=== PATIENT | female | born 1950 | race Caucasian/White ===

== ENCOUNTER 2024-09-25 21:59 | Emergency (ER) | payer MEDICARE ==
[~2024-09-25] VITALS: Ht 154.9 cm; Wt 79.4 kg
[2024-09-25] MEDS ORDERED: Morphine 2mg Syringe 2 MG/ML SYR IV ONE (23:30)
[2024-09-26] MEDS: SODIUM CHLORIDE 0.9% 500ML 500 ML IV ONE (00:30)
[2024-09-26] MEDS: FAMOTIDINE 20 MG/2 ML VIAL IV STA (00:30)
[2024-09-26] MEDS: ONDANSETRON HCL INJ 2MG/ML 2ML 2 MG/ML VIAL IV STA (00:30)
[2024-09-26] MEDS: Morphine 4mg INJECTION 4 MG/ML INJ IV ONE (00:32)
[2024-09-26] MEDS ORDERED: IOPAMIDOL 370 MG/ML 100 ML INFUS..BTL INJ ONE (00:49)
[2024-09-26] MEDS ORDERED: ONDANSETRON ODT4 MG PO (02:21)
[2024-09-26] MEDS ORDERED: PEPCID20 MG PO (02:22)
[2024-09-26 02:30] VITALS: PULSE 61; RESP 16; TEMP 98.1
[2024-09-26 02:33] VITALS: BP 156/73; PULSE 61; RESP 15; TEMP 98.1; O2SAT 96
== END 2024-09-26 02:47 | disposition home or self-care (01) ==
LOC: FSED 22:04
DX: R11.2 Nausea with vomiting, unspecified (principal); K57.90 Diverticulosis of intestine, part unspecified, without perforation or abscess without bleeding; R19.7 Diarrhea, unspecified; K44.9 Diaphragmatic hernia without obstruction or gangrene; K76.0 Fatty (change of) liver, not elsewhere classified; M19.09 Primary osteoarthritis, other specified site; M17.12 Unilateral primary osteoarthritis, left knee; R91.1 Solitary pulmonary nodule; I25.10 Atherosclerotic heart disease of native coronary artery without angina pectoris; I34.81 Nonrheumatic mitral (valve) annulus calcification; R94.31 Abnormal electrocardiogram [ECG] [EKG]; Z85.72 Personal history of non-Hodgkin lymphomas
CPT/HCPCS: 70450; 73080; 73562; 74177; 80053; 81003; 82553; 84484; 85025; 93005; 99284; J2270; J2405; J7040; Q9967